=== PATIENT | male | born 1995 | race Caucasian/White ===

== ENCOUNTER 2022-07-12 19:53 | Emergency (ER) | payer OTHER, SELFPAY ==
[2022-07-12 20:04] VITALS: BP 153/98; PULSE 87; RESP 16; TEMP 36.7; O2SAT 98; BMI 31.2
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
[2022-07-12 22:01] VITALS: PULSE 72; RESP 16; O2SAT 99
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
== END 2022-07-12 22:02 | disposition home or self-care (01) ==
LOC: ED 21:55
PROVIDERS: Emergency Provider Family Medicine; PCP Family Medicine
DX: S06.0X0A Concussion without loss of consciousness, initial encounter (principal); W22.8XXA Striking against or struck by other objects, initial encounter; Y93.9 Activity, unspecified; Y92.013 Bedroom of single-family (private) house as the place of occurrence of the external cause; Y99.9 Unspecified external cause status
CPT/HCPCS: 99282; 99284

== ENCOUNTER 2023-10-03 13:40 | Emergency (ER) | payer BC, SELFPAY ==
[2023-10-03 13:57] VITALS: BP 147/93; PULSE 88; RESP 18; TEMP 36.6; O2SAT 99; BMI 29.5
[2023-10-03 15:01] LABS: Basophils Absolute Auto 0.02 K/uL (0.00-0.30); Basophils Percent Auto 0.3 % (0.0-3.0); Eosinophils Absolute Auto 0.17 K/uL (0.00-0.50); Eosinophils Percent Auto 2.6 % (0.0-7.0); Hematocrit 44.9 % (37.0-53.0); Hemoglobin* 15.3 gm/dL (13.5-17.5); Immature Granulocytes Abs Auto 0.04 K/uL (0.00-0.30); Immature Granulocytes Pct Auto 0.6 %; Lymphocytes Absolute Auto 1.74 K/uL (0.90-2.90); Lymphocytes Percent Auto 26.7 % (20-44); Mean Corpuscular HGB Conc 34 gm/dL (32-36); Mean Corpuscular Hemoglobin 29 pg (26-34); Mean Corpuscular Volume 86 fL (80-100); Neutrophils Absolute Auto 4.02 K/uL (1.7-7.0); Neutrophils Percent Auto 61.8 % (42.0-72.0); Platelet Count* 228 K/uL (140-440); RDW Coefficient of Variation % 12.5 % (11.5-15.5); Red Blood Count 5.24 m/uL (4.30-5.90); White Blood Count* 6.51 K/uL (4.50-11.00)
[2023-10-03 15:10] LABS: Slide Review Reflex No
[2023-10-03 15:14] LABS: Lactate* 0.9 mmol/L (0.5-1.9)
[2023-10-03 15:17] LABS: Albumin* 4.7 g/dL (3.3-5.0); Chloride* 106 mmol/L (96-114); Potassium* 4.1 mmol/L (3.6-5.1); Sodium* 141 mmol/L (135-149)
--- NOTE | 2023-10-03 15:17 | ED_ITS ---
HPI - General Adult General Chief complaint: Abdominal Pain Stated complaint: abdominal pain Time Seen by Provider: 10/03/23 13:44 Source: patient Mode of arrival: ambulatory Limitations: no limitations History of Present Illness HPI narrative: 27-year-old male with a history of significant anxiety presents today with abdominal pain going on for 3 days. Pain is periumbilical and epigastric in nature. Eating makes it worse, nothing seems to make it better. He does feel quite nauseated and has vomited 1 time on 2 of the previous days. He had loose stools x1. No difficulty with urination. No fevers or chills. No recent traveling or camping. No sick contacts that he is aware of. Denies any intra- abdominal surgery in the past. Related Data Home Medications Medication Instructions Recorded Confirmed albuterol sulfate 90 mcg/actuation inhalation 07/12/22 aerosol inhaler cyclobenzaprine 10 mg tablet mg 07/12/22 famotidine 20 mg tablet mg 07/12/22 ibuprofen 800 mg tablet mg 07/12/22 lorazepam 0.5 mg tablet mg 07/12/22 Allergies Allergy/AdvReac Type Severity Reaction Status Date / Time Penicillins Allergy didn't Verified 07/12/22 20:12 settle with him lamotrigine AdvReac Unknown Verified 10/03/23 13:52 Latex, Natural Rubber AdvReac Unknown Verified 10/03/23 13:52 oxycodone AdvReac Unknown violence Verified 10/03/23 13:52 quetiapine AdvReac Unknown Verified 10/03/23 13:52 diphenhydramine AdvReac skin Verified 10/03/23 13:52 [From Benadryl] crawls, freaks out Review of Systems Status of ROS: Reports: 10 or more systems reviewed and unremarkable except as noted in History and below [facility] Social History Do you use any of these nicotine containing products: Vaping Products How often do you have a drink containing alcohol: 2-3 times a week How many standard drinks containing alcohol do you have on a typical day: 1 or 2 AUDIT-C Alcohol total score: 3 Non-prescribed substance use: marijuana (any form) Exam Narrative: Exam Narrative: Well-nourished well-developed patient in no acute distress but is very anxious. Alert and oriented. Answers questions appropriately. Mood and affect are appropriate. Thoughts are goal oriented and rational. No tangential or magical thinking noted. Patient speaks in full sentences without needing to catch their breath. HEENT: Normocephalic atraumatic. Pupils are equally round reactive to light. Extraocular muscles are intact. Conjunctivae are moist without any icterus noted. Moist mucous membranes. Posterior pharynx is normal. Neck is soft without any lymphadenopathy or thyromegaly. No masses are appreciated. Cardiovascular: Heart is regular rate and rhythm S1 and S2 are present without any murmurs. Lungs: Clear to auscultation bilaterally no wheezes rhonchi or rales are appreciated. Patient takes deep breaths without any discomfort. Abdomen: Soft and nondistended with normal bowel sounds. No guarding or rebound. No masses or organomegaly appreciated. Has very minimal tenderness in the epigastric and periumbilical regions. However, also complains of discomfort in the bilateral lower quadrants. Extremities: Bilateral lower extremities are without edema. Normal DP and PT pulses. Skin: Well perfused without any obvious rashes. Const: Vital Signs, click to edit/add: Vital Signs - 24 hr 10/03/23 13:57 Temperature 97.9 F Pulse Rate [Pulse Oximeter] 88 Respiratory Rate 18 Blood Pressure [Ri ght Upper Arm] 147/93 H Pulse Oximetry 99 Oxygen Delivery Me thod Room Air Course Course ED Course: Patient's lab work was entirely unremarkable. He did receive a dose of Carafate while he was here and stated that it did not do anything for his pain. When I went to explain to the patient has lab work was normal and I do believe he likely has a gastritis or peptic ulcer disease, he became very upset. He stated that he is at the end of his rope and he is angry that he has to be in pain. We discussed that the medication can take a few days to work while we decreased the amount of acid in his stomach. He was not happy with this explanation. I recommended that he stay away from NSAIDs and caffeine, patient tells me that he takes Excedrin and that helps him. Patient was quite argumentative. S Ms. That leave the room, I am called back in because patient is having a ?pseudo seizure. His girlfriend who is with him tells me that this occurs when he becomes emotionally overwhelmed. The 1 way that he can calm down again is to smoke marijuana. Unfortunately that is not an option force in the hospital today therefore however the patient be placed on a heart monitor and a dose of Ativan be given. Fortunately, within a couple of minutes patient was able to come out of his pseudo seizure episode and tell me that he did not want any medications. Vital signs were repeated, patient is vitally stable requesting discharge. Vital Signs Vital signs: Initial Vital Signs Temperature 97.9 F 10/03/23 13:57 Temperature Source Temporal Artery Scan 10/03/23 13:57 Pulse Rate 88 10/03/23 13:57 Respiratory Rate 18 10/03/23 13:57 Blood Pressure 147/93 H 10/03/23 13:57 Blood Pressure Mean 111 H 10/03/23 13:57 Blood Pressure Position Sitting 10/03/23 13:57 Pulse Oximetry 99 10/03/23 13:57 Oxygen Delivery Method Room Air 10/03/23 13:57 Vital Signs Temperature 97.9 F 10/03/23 13:57 Pulse Rate 88 10/03/23 13:57 Respiratory Rate 18 10/03/23 13:57 Blood Pressure 147/93 H 10/03/23 13:57 Pulse Oximetry 99 10/03/23 13:57 Oxygen Delivery Method Room Air 10/03/23 13:57 Temperature 97.9 F 10/03/23 13:57 Pulse Rate 88 10/03/23 13:57 Respiratory Rate 18 10/03/23 13:57 Blood Pressure 147/93 H 10/03/23 13:57 Pulse Oximetry 99 10/03/23 13:57 Oxygen Delivery Method Room Air 10/03/23 13:57 Medications Administered Medications: Discontinued Medications Generic Name Dose Route Start Last Admin Trade Name Freq PRN Reason Stop Dose Admin Sucralfate 1 gm 10/03/23 15:57 10/03/23 16:10 Sucralfate 1 Gm Tablet PO 10/03/23 15:58 1 gm ONCE ONE Administration Medical Decision Making [facility] Narrative Medical decision making narrative: 27-year-old male with nonspecific abdominal discomfort. Differential diagnoses include gastritis peptic ulcer disease. Normal laboratory workup without evidence of infection or inflammation. At this time I do not recommend further imaging given that I believe the risk of radiation at this time would outweigh the benefits. I recommend a bland diet and heating pad to the abdomen is needed. Will start omeprazole daily as well as famotidine during the day as needed. Return to the ER for worsening symptoms. Lab Data Lab results reviewed: Yes I reviewed the patient's lab results Labs: Lab Results 10/03/23 10/03/23 Range/Units 14:52 15:55 WBC 6.51 (4.50-11.00) K/uL RBC 5.24 (4.30-5.90) m/uL Hgb 15.3 (13.5-17.5) gm/dL Hct 44.9 (37.0-53.0) % MCV 86 (80-100) fL MCH 29 (26-34) pg MCHC 34 (32-36) gm/dL RDW Coeff of Maureen 12.5 (11.5-15.5) % Plt Count 228 (140-440) K/uL Neut % (Auto) 61.8 (42.0-72.0) % Lymph % (Auto) 26.7 (20-44) % Carolina % (Auto) 8.0 (0.0-11.0) % Eos % (Auto) 2.6 (0.0-7.0) % Baso % (Auto) 0.3 (0.0-3.0) % Neut # (Auto) 4.02 (1.7-7.0) K/uL Lymph # (Auto) 1.74 (0.90-2.90) K/uL Carolina # (Auto) 0.50 (0.00-0.90) K/UL Eos # (Auto) 0.17 (0.00-0.50) K/uL Baso # (Auto) 0.02 (0.00-0.30) K/uL Abs Immat Gran (auto) 0.04 (0.00-0.30) K/uL Imm/Tot Granulo (auto) 0.6 % Sodium 141 (135-149) mmol/L Potassium 4.1 (3.6-5.1) mmol/L Chloride 106 (96-114) mmol/L Carbon Dioxide 25 (20-32) mmol/L Anion Gap 10 (7-15) mEq/L BUN 7 (5-24) mg/dL Creatinine 0.8 (0.5-1.5) mg/dL Estimated Creat Clear 161.26 Estimated GFR 124 ml/min Glucose 93 (60-115) mg/dL Lactate 0.9 (0.5-1.9) mmol/L Calcium 9.3 (8.4-10.6) mg/dL Total Bilirubin 0.6 (0.1-1.5) mg/dL Direct Bilirubin 0.2 (0.0-0.5) mg/dL AST 31 (12-35) U/L ALT 52 H (4-50) U/L Alkaline Phosphatase 48 (40-150) U/L C-Reactive Protein 1.0 (0.5-1.0) mg/dL Total Protein 8.0 (6.0-8.3) g/dL Albumin 4.7 (3.3-5.0) g/dL Lipase 42 (23-300) U/L Urine Color Yellow (Yellow) Urine Appearance Clear (Clear) Urine pH 6.5 (5.0-8.5) Ur Specific Forrest <= 1.005 (1.000-1.030) Urine Protein Negative (Negative) Urine Glucose (UA) Negative (Negative) Urine Ketones Negative (Negative) Urine Blood Trace-intact A (Negative) Urine Nitrite Negative (Negative) Urine Bilirubin Negative (Negative) Urine Urobilinogen 0.2 (0.2-1.0) Ur Leukocyte Esterase Negative (Negative) Urine RBC 0-2 (0-2) Urine WBC 0-2 (0-5) Ur Squamous Epith Cells Few (None-Few) Urine Bacteria None (None) Discharge Plan Discharge Clinical Impression: Abdominal pain Patient Disposition: Home, Self-Care Condition: Stable Additional Instructions: Your workup today was normal. There was no evidence of infection. We also checked your liver, pancreas and kidneys all which appear to be functioning well. I do believe that your pain is likely caused by either gastritis, which is an inflammation of the lining of the stomach, or by peptic ulcer disease which is a small ulcer present in the stomach or small intestine. At this time I recommend you start daily omeprazole 20 mg daily-this can be purchased [id number]. I also recommend you start taking daily famotidine or Zantac as needed/as directed throughout the day for discomfort. If you develop a fever, you should return to the ER for re-examination. Prescriptions: No Action cyclobenzaprine 10 mg tablet famotidine 20 mg tablet lorazepam 0.5 mg tablet albuterol sulfate 90 mcg/actuation HFA aerosol inhaler INHALATION ibuprofen 800 mg tablet Follow Up/Referrals: Provider,Not a Local [Primary Care Provider] - Stand Alone Forms: [employer] Info Instructions
[2023-10-03 15:19] LABS: Creatinine* 0.8 mg/dL (0.5-1.5); Est. Creatinine Clearance* 161.26; Estimated Glomerular Filt Rate 124 ml/min
[2023-10-03 15:20] LABS: Alkaline Phosphatase* 48 U/L (40-150); Anion Gap 10 mEq/L (7-15); Aspartate Amino Transferase* 31 U/L (12-35); Bilirubin Direct* 0.2 mg/dL (0.0-0.5); Bilirubin Total* 0.6 mg/dL (0.1-1.5); Blood Urea Nitrogen* 7 mg/dL (5-24); Carbon Dioxide* 25 mmol/L (20-32); Glucose* 93 mg/dL (60-115); Lipase* 42 U/L (23-300)
[2023-10-03 15:21] LABS: Alanine Aminotransferase* 52 U/L (4-50); Calcium* 9.3 mg/dL (8.4-10.6)
[2023-10-03 16:00] LABS: Bilirubin Urine Negative (Negative); Blood Urine Trace-intact (Negative); Color Urine Yellow (Yellow); Glucose Urine Negative (Negative); Ketones Urine Negative (Negative); Leukocyte Esterase Urine Negative (Negative); Nitrite Urine Negative (Negative); Protein Urine Negative (Negative); Specific Gravity Urine <= 1.005 (1.000-1.030); Urobilinogen Urine 0.2 (0.2-1.0); pH Urine 6.5 (5.0-8.5)
[2023-10-03] MEDS: SUCRALFATE 1 GM TABLET PO (16:10)
[2023-10-03 16:41] LABS: Appearance Urine Clear (Clear)
[2023-10-03 16:45] LABS: RBC Urine 0-2 (0-2); Squamous Epithelial Cell Urine Few (None-Few); WBC Urine 0-2 (0-5)
--- NOTE | 2023-10-03 17:25 | ED.NURSE ---
mortgage or loan underwriter went into pt room to administer medication ordered (lorazepam). pt declined medication and stated, I'm done, I just want to put on my shirt and go home. mortgage or loan underwriter then informed the pt that they would notify the doctor of their wishes when an fire control technician b entered the room handed the mortgage or loan underwriter discharge instructions. discharge instructions reviewed and questions were clarified. pt discharged with significant other.
== END 2023-10-03 17:05 | disposition home or self-care (01) ==
PROVIDERS: Emergency Provider Family Medicine
DX: R10.9 Unspecified abdominal pain (principal)
CPT/HCPCS: 36415; 80048; 80076; 81001; 83605; 83690; 85025; 86140; 87086; 94761; 99283; 99284; A9270